=== PATIENT | female | born 1930 | race Caucasian/White ===

== ENCOUNTER 2019-09-29 12:21 | Emergency (ER) | payer OTHER ==
[~2019-09-29] VITALS: Ht 157.5 cm; Wt 59.0 kg
[2019-09-29] MEDS ORDERED: ASPIR 8181 MG (12:30)
[2019-09-29] MEDS ORDERED: PAXIL20 MG (12:30)
[2019-09-29] MEDS ORDERED: LORAZEPAM (12:31)
[2019-09-29] MEDS ORDERED: COZAAR100 MG (12:31)
[2019-09-29] MEDS ORDERED: AMLODIPINE BESYL5 MG (12:32)
[2019-09-29] MEDS ORDERED: ARICEPT10 MG (12:33)
[2019-09-29] MEDS ORDERED: ESTAZOLAM2 MG (12:33)
== END 2019-09-29 17:20 | disposition home or self-care (01) ==
LOC: ER 12:21
DX: S01.111A Laceration without foreign body of right eyelid and periocular area, initial encounter (principal); G30.8 Other Alzheimer's disease; F02.80 Dementia in other diseases classified elsewhere, unspecified severity, without behavioral disturbance, psychotic disturbance, mood disturbance, and anxiety; W06.XXXA Fall from bed, initial encounter; Y93.89 Activity, other specified; Y92.122 Bedroom in nursing home as the place of occurrence of the external cause; Y99.8 Other external cause status

== ENCOUNTER 2019-11-20 13:41 | Emergency (ER) | payer OTHER ==
[~2019-11-20] VITALS: Ht 170.2 cm; Wt 49.9 kg
[~2019-11-20 13:41] MED LIST: AMLODIPINE BESYL5 MG; ARICEPT10 MG; ASPIR 8181 MG; COZAAR100 MG; ESTAZOLAM2 MG; LORAZEPAM; PAXIL20 MG
[2019-11-20] MEDS ORDERED: CALCIUM + D3 E1 EACH PO (14:09)
[2019-11-20] MEDS ORDERED: SEROQUEL25 MG (14:09)
[2019-11-20] MEDS ORDERED: MULTIVITAMINS1 EAC9 (14:10)
[2019-11-20] MEDS ORDERED: COZAAR100 MG PO (14:10)
[2019-11-20] MEDS ORDERED: PAXIL20 MG (14:10)
[2019-11-20] MEDS ORDERED: AMLODIPINE-OLM1 EACH PO (14:11)
[2019-11-20] MEDS ORDERED: RISPERDAL1 MG PO (14:11)
[2019-11-20] MEDS ORDERED: ESTAZOLAM2 MG (14:12)
[2019-11-20] MEDS ORDERED: ARICEPT10 MG PO (14:12)
== END 2019-11-20 19:23 | disposition home or self-care (01) ==
LOC: ER 13:41
DX: E86.0 Dehydration (principal); N39.0 Urinary tract infection, site not specified; B96.4 Proteus (mirabilis) (morganii) as the cause of diseases classified elsewhere